=== PATIENT | female | born 1995 | race Caucasian/White ===

== ENCOUNTER 2020-08-22 11:33 | Emergency (ER) | payer OTHER ==
[~2020-08-22] VITALS: Ht 167.6 cm; Wt 136.1 kg
[2020-08-22] MEDS ORDERED: CYCLOBENZAPRINE5 MG PO (13:03)
[2020-08-22] MEDS ORDERED: MOBIC7.5 MG PO (13:03)
[2020-08-22 13:36] VITALS: BP 138/67
== END 2020-08-22 13:39 | disposition home or self-care (01) ==
LOC: ER 11:33
DX: M54.2 Cervicalgia (principal); M62.838 Other muscle spasm; F12.90 Cannabis use, unspecified, uncomplicated; V49.88XA Car occupant (driver) (passenger) injured in other specified transport accidents, initial encounter; Y93.9 Activity, unspecified; Y92.413 State road as the place of occurrence of the external cause; Y99.9 Unspecified external cause status